=== PATIENT | male | born 1985 | race Caucasian/White ===

== ENCOUNTER 2018-04-16 03:06 | Emergency (ER) | END 2018-04-16 05:52 | disposition home or self-care (01) ==

== ENCOUNTER 2019-06-23 14:22 | Emergency (ER) | payer OTHER ==
[~2019-06-23] VITALS: Ht 162.6 cm; Wt 117.2 kg
[~2019-06-23 14:22] MED LIST: CYCL10TA7 PO; DIAZ5TAB PO; IBUP-1542 PO; MED4DP PO
[2019-06-23 14:34] VITALS: BP 150/90; PULSE 116; RESP 18; Ht 162.6 cm; Wt 117.2 kg
[2019-06-23] MEDS ORDERED: KETOROLAC 30 MG INJ IM STA (14:56)
== END 2019-06-23 15:19 | disposition home or self-care (01) ==
LOC: FTE 14:22
DX: M54.5 Low back pain (principal); F17.210 Nicotine dependence, cigarettes, uncomplicated; G89.29 Other chronic pain
CPT/HCPCS: 96372; J1885; Z7502